=== PATIENT | female | born 1985 | race Caucasian/White ===

== ENCOUNTER → 2018-04-03 13:29 | Outpatient (CLI) | payer OTHER, SELFPAY ==
--- NOTE | 2018-04-03 13:32 | US_ITS ---
STUDY: ULTRASOUND TRANSVAGINAL CLINICAL: Female, 33 years old. Irregular menses. TECHNIQUE: Transabdominal and Transvaginal COMPARISON: None. FINDINGS: Normal uterine size measuring 7.3 cm in maximal craniocaudal dimension. There are no myometrial masses. Normal endometrial thickness measuring 2.8 mm. There are no endometrial masses, and there is no fluid in the endometrial cavity. Normal uterine cervix. Normal right ovary, measuring 3.2 x 2.2 x 2.1 cm. There are multiple follicles without a dominant cyst. Spectral analysis and Doppler flow is within normal limits. Normal left ovary, measuring 2.7 x 2.1 x 1.3 cm. There are multiple follicles without a dominant cyst. Doppler flow and spectral analysis are within normal limits. There is no free fluid in the pelvis. Polycystic ovary disease: No. US/Pelvic (Non ) IMPRESSION: Within normal limits examination. Electronically Signed: Cira Leung MD at 17:03 EDT Tel , Service support ,
--- NOTE | 2018-04-03 13:50 | US_ITS ---
STUDY: ULTRASOUND TRANSVAGINAL CLINICAL: Female, 33 years old. Irregular menses. TECHNIQUE: Transabdominal and Transvaginal COMPARISON: None. FINDINGS: Normal uterine size measuring 7.3 cm in maximal craniocaudal dimension. There are no myometrial masses. Normal endometrial thickness measuring 2.8 mm. There are no endometrial masses, and there is no fluid in the endometrial cavity. Normal uterine cervix. Normal right ovary, measuring 3.2 x 2.2 x 2.1 cm. There are multiple follicles without a dominant cyst. Spectral analysis and Doppler flow is within normal limits. Normal left ovary, measuring 2.7 x 2.1 x 1.3 cm. There are multiple follicles without a dominant cyst. Doppler flow and spectral analysis are within normal limits. There is no free fluid in the pelvis. Polycystic ovary disease: No. US/Transvaginal Non- IMPRESSION: Within normal limits examination. Electronically Signed: Cira Leung MD at 17:03 EDT Tel , Service support ,
== END ==
PROVIDERS: Visit Provider Obstetrics & Gynecology
DX: N80.9 Endometriosis, unspecified (principal)
CPT/HCPCS: 76830; 76856; 93976

== ENCOUNTER 2018-04-16 05:52 | Day surgery (SDC) | payer OTHER, SELFPAY ==
--- NOTE | 2018-04-13 10:41 | PCM.HPOB.BLA ---
- Problem List (1) Endometriosis Status: Acute History and Physical Date of Admission: 04/16/18 Intake Vital Signs 03/31/18 Height 5 ft 8 in 03/31/18 Weight: 156 lb 03/31/18 Body Mass Index (BMI) 23.7 03/31/18 Blood Pressure 111/67 Intake Visit Reasons: Discuss endometriosis Chief Complaint: Issues with endometriosis, discuss surgery Signals Intelligence Analyst Required: No Is patient in pain?: No Allergies tobramycin Allergy (Verified 03/31/18 09:19) Rash Medications Vits [Prenatabs FA ] 1 tab PO DAILY 01/13/14 [History Confirmed 06/30/16] Cetirizine HCl [Zyrtec] 10 mg PO DAILY 01/15/14 [History Confirmed 03/31/18] Fluticasone 0.05% [Flonase Nasal [place]] 1 spray NASAL DAILY 06/15/16 [History Confirmed 03/31/18] Oxycodone HCl/Acetaminophen [Percocet 5/325] 1 - 2 tab PO Q6H PRN PRN #40 tab 07/06/16 [Rx] drospirenone-ethinyl estradiol 3 mg-0.02 mg (24) tablet 1 tab PO QDAY 03/31/18 [History Confirmed 03/31/18] ferrous sulfate 325 mg (65 mg iron) tablet 325 mg PO QDAY tab 03/31/18 [History Confirmed 03/31/18] magnesium oxide 400 mg capsule 400 mg PO QDAY cap 03/31/18 [History Confirmed 03/31/18] Is last menstrual period known: Yes Last Menstral Period: 03/03/18 Post menopausal: No Patient : No : No PFSH Medical History Endometriosis (Acute) Surgical History delivery delivered (Acute) H/O laparoscopy (Acute) History of hip surgery (Acute) History of tonsillectomy (Acute) leg surgery (Acute) Family History Father Heart disease MVP (mitral valve prolapse) Mother Hypertension Social History Smoking Status: Never smoker alcohol intake: never substance use type: does not use caffeine: Yes what type of physical activity do you participate in: none seatbelt use: always do you feel safe at home: Yes additional social history: [place]- 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 she has also had irregular bleeding. she had some issues with acne and hot flashes. she has been on the loryna and has pain persitently even outside of the cycle. she is having more throughout the month. she did lupron before and it did help for the time she was on it. she has had two endometriosis surgeries in the past, once by dr aranda. she feels like this pain is different from her pain from her legs. Female Reproductive History Last Menstral Period: 03/03/18 Cycle Length: 21-35 Bleeding Duration: 5 Questions: Metorrhagia: No, Sexually active: Yes, Dyspareunia: Yes (introital), PCB: No Pregancy History 3 Elective abortions Hx Para 3 Spontaneous abortions Hx # Term Pregnancies Ectopic pregnancies Hx # Pregnancies Multiple births # of living children Past Pregnancies Del. Date Name GA/Weeks Outcome Route Bth Weight Gen Labor Lgth Anesthesia Del Locatn Provider FOB Unknown 2011 Tony live - full term [facility] Unknown 2013 Vandana live - full term [facility] Unknown 2016 Shantal live - full term [facility] ROS Const Constitutional: Denies poor appetite, headache(s), fever(s), increased appetite, weight gain, weight loss or fatigue Cardio Card: Denies chest pain Resp Resp: Denies dyspnea or cough GI GI: Reports as per HPI; denies vomiting, nausea, abdominal pain or constipation : Reports as per HPI; denies urinary urgency, vaginal discharge, urinary frequency, vaginal itching, vaginal odor, vaginal dryness, urinary incontinence, urinary hesitancy, difficulty urinating, painful urination or nipple discharge Skin Skin/Breast: Denies breast lump, breast pain, breast skin changes, nipple discharge or change in hair Exam Const General: cooperative, healthy appearing, comfortable, no acute distress, well developed Nutritional Appearance: average body habitus Orientation: alert HENMT Head: normal to inspection, normocephalic Neck Neck: normal visual inspection, trachea midline Thyroid: thyroid normal Resp Effort & Inspection: normal respiratory effort GI Inspection: normal to inspection, non-distended Palpation: soft, no hepatosplenomegaly General: bladder normal to palpation External Female Exam: normal external appearance, normal appearance of the urethra Urethra: normal appearance of the urethra, normal palpation, no discharge Speculum Exam - Vagina: normal appearance of the vagina, normal vaginal discharge Speculum Exam - Cervix: normal appearance of the cervix, nontender Bimanual Exam- Vagina & Uterus: bladder normal to palpation, No cervical tenderness, normal bimanual exam, uterine size normal, uterine shape normal, uterine mobility normal, uterine consistency normal, normal cervical palpation, uterus non-tender Bimanual Exam- Adnexa, other: normal adnexae, adnexae mobile, no adnexal masses, pelvic support normal Pelvic Support: normal Skin General: no rashes or lesions noted Assessment & Plan Problems 1. Endometriosis N80.9 Plan discussed options for management including iud vs lupron vs hysterectomy- patient wishes to proceed with hysterectomy. discussed surgical risks including risks of anesthesia, infection, bleeding, injury to bowel, bladder or blood vessels, and patient wishes to proceed with surgery. plan continuous ocp, normal pelvic ultrasound done Orders Orders: Pelvic (Non ) Today N80.9 Caryl Lyles MD Transvaginal Non- Today N80.9 Caryl Lyles MD Medications Discontinued: ibuprofen Discontinued Reason: Ordered/Entered in error 800 mg PO TID PRN PRN Pain Reena Weinstein i have seen the patient and provided any clinically relevant updates to the h and p
[2018-04-14 17:30] LABS: Absolute Lymphocyte Count 2.03 X10^3/ul (0.83-4.51); Basophil# 0.11 X10^3/uL; Basophil% 1.3 % (0-1); Eosinophil# 0.94 X10^3/uL; Eosinophils% 10.9 % (0-5); Hematocrit 36.2 % (37-47); Hemoglobin 12.4 g/dl (12.0-15.0); Lymphocyte # 2.03 X10^3/ul (4.0); Lymphocyte % 23.5 % (19-41); Mean Corp Hgb Conc 34.3 g/gl (32-36); Mean Corpuscular Hgb 29.7 pg (27.0-32.0); Mean Corpuscular Volume 86.8 fL (81-99); Mean Platelet Vol. 11.2 fl (6.2-12.0); Monocyte# 0.56 X10^3/uL; Monocyte% 6.5 % (0-10); Neutrophil # 4.98 X10^3/uL (2.7-7.7); Neutrophil % 57.8 % (47-70); POSITIVE DIFFERENTIAL NO; Platelet Count 252 K/mm3 (150-450); RBC Distribution Width CV 11.9 % (11.6-14.6); RBC Distribution Width SD 37.8 fl (35.1-43.9); Red Blood Count 4.17 M/mm3 (4.2-5.4); White Blood Count 8.6 K/mm3 (4.4-11.0)
[2018-04-14 17:31] LABS: POSITIVE COUNT NO; POSITIVE MORPHOLOGY NO
[2018-04-16] VITALS (17 sets, daily range): BP systolic 100–116; BP diastolic 57–67; PULSE 67–92; RESP 14–18; TEMP 36.6–37.1; O2SAT 96–100; BMI 22.9
--- NOTE | 2018-04-16 07:30 | UT_PTH ---
PATIENT: DILLON FERNANDEZ LOC: [facility] [place] U#:[id number] AGE/SX: 33/F ROOM: RE04/16/[address]: Dr. Caryl Lyles MD : [id number] BED: DIS: 04/17/2018 SPEC #: [id number] RECD: 04/16/18 12:26 STATUS: MICKY BILLIE #: [id number] FRED: 04/16/18 07:[address]: Carly Lyles DEPT: SURGICAL PATHOLOGY RECD BY: Jefry Cerrato ENTERED: 04/16/18 12:51 SP TYPE: UTERUS OTHR DR: Dr. Lisa Fabian, Tissues: Uterus, NOS Procedures: Special Stain Group II Surgery Specimen Level V Amyloid Stain (control) HEADER OPERATION: Hysterectomy, lap-assisted vaginal, salpingectomy, cysto PRE-OP DIAGNOSIS: Endometriosis TISSUE SUBMITTED: Uterus, bilateral fallopian tubes MICROSCOPIC DIAGNOSIS Uterus, hysterectomy: Cervix ? mild chronic inflammation. Endometrium ? transition endometrium. Myometrium ? focal adenomyosis and hyalinized plaques. Right and left fallopian tubes ? no significant pathologic change. AM:lyn 04/17/18 COMMENT [place] red stain with matched control supports the above diagnosis. MICROSCOPIC DESCRIPTION Slides are reviewed. GROSS DESCRIPTION Received in fixative is one container labeled with the patient's name and designated uterus. The specimen consists of a uterus with attached cervix and attached right and left fallopian tubes. The uterus with cervix measures 8 x 6.5 x 3.3 cm and weighs 61 gm. The ectocervix is unremarkable. The cervical os is oval in contour. The endocervical canal measures 3.3 cm in length and is grossly unremarkable. The triangular endometrial cavity measures 3.5 x 2.5 cm. The velvety, glistening, light jimenez endometrium measures up to 0.2 cm in thickness. The right fallopian tube measures 7.5 cm in length and 0.6 cm in average diameter. The left fallopian tube has a similar length and diameter. Both fallopian tubes have normal fimbriated ends. Filshie clips are identified in the proximal portion of fallopian tubes and are intact. The myometrium measures 1.7 cm in average thickness and is free of mass lesions. House Servant sections are submitted in eight cassettes as follows: 1 - anterior cervix, 2 - posterior cervix, 3 & 4 - anterior uterine wall, 5 & 6 - posterior uterine wall, 7 ? right fallopian tube, 8 ? left fallopian tube. / AM:lyn 04/16/18 TC:5 CPT: 40551, 61205
--- NOTE | 2018-04-16 07:36 | OP.PCM_ITS ---
Problem List (1) Endometriosis Status: Acute Report of Operation Date of Procedure: 04/16/18 Pre-Operative Diagnosis: endometriosis Post-Operative Diagnosis: same Surgery/Procedure Performed:: lavh bs cystoscopy Description of Surgical Findings:: Vesicouterine scar tissue normal ovaries bilaterally normal bladder direct marketing coordinator: Macy Holley Type of Anesthesia:: General Special Medications: None Specimen's removed: uterus tubes Drains: Jordan Estimated Blood Loss (mL): 50 cc Fluids Replaced: crystalloid Description of Procedure: Patient received preoperative antibiotics and SCDs were on preoperatively. Patient was taken back to the operating room and placed in the dorsal lithotomy position. General anesthesia was induced and patient was prepped and draped in normal sterile fashion. Uterine manipulator was placed inside the uterus and Jordan catheter placed in the bladder. The umbilicus was grasped with towel clamps and an intraumbilical incision was made after injecting with quarter percent Marcaine and a Veress needle entered into the abdomen confirmed to be intra-abdominal with a low opening pressure. Abdomen was insufflated with CO2 gas and the Veress needle removed and the 5 mm trocar was placed under direct visualization without complication. Right and left lower quadrants were transilluminated and injected with quarter percent Marcaine and 5 mm ports placed under direct visualization. Pelvis was well visualized see operative findings for additional information. Bilateral fallopian tubes were identified and transected with the LigaSure device across the mesosalpinx to the level of the utero-ovarian ligament which was also transected with the LigaSure device. The broad ligament was opened up by transecting the round ligament bilaterally and skeletonizing the uterine vessels bilaterally and creating a bladder flap using the LigaSure device. Some vesicouterine scar tissue was encountered which was taken down sharply and bluntly. The uterine arteries were transected bilaterally with good visualization of the bladder and the ureters were seen to be inferior lateral to the operative area. Attention was then paid to the vaginal portion of the procedure and the cervix was grasped with Jessica clamps and circumferentially injected with dilute vasopressin. A circumferential incision was made and the vaginal mucosa was mobilized off posteriorly and the cul-de-sac entered into sharply and a longneck speculum placed. The anterior cul-de-sac was then identified and entered into sharply. The uterosacral ligaments were clamped cut and suture ligated with 0 Monocryl bilaterally followed by the cardinal ligaments which were clamped cut and suture ligated bilaterally with 0 Monocryl. The uterus serially descended and was removed without difficulty with minimal morcellation. Pelvic sidewall pedicles were checked and noted to have excellent hemostasis. The vaginal mucosa was reapproximated incorporating the posterior peritoneum. This was reapproximated using 0 Vicryl [id number] sutures. Excellent hemostasis was noted. The cystoscopy was then performed and bilateral ureteral strong spray was noted and the bladder was noted to have no abnormality or lesions seen. Jordan catheter was replaced and then attention paid to the abdominal portion of the procedure again. The pelvis and cul-de-sac was well visualized and no significant active bleeding noted. Pressure was taken down and the areas visualized and noted of excellent hemostasis. All ports were removed under direct visualization without complication and the abdomen was desufflated of air. The instruments removed from the abdomen and the vagina vaginal sweep was negative. Port sites on the abdomen were closed with 4-0 Monocryl interrupted sutures and Steri's and windows were applied. She was awoken and taken recovery in stable condition. Grafts/Implants Used: none - Complications None - Admit VTE Documentation VTE Present on Admission: No VTE Mechan Device Prophylaxis: SCD's VTE Pharm Prophylaxis ordered?: No
[2018-04-16] MEDS: Vasopressin 20 UNITS/ML Vial (08:17)
[2018-04-16] MEDS: Bupivacaine 0.25% 30 ML Vial (08:40)
[2018-04-16] MEDS: HYDROmorphone 1 MG/ML Syringe IV ×3 (11:49→21:25)
[2018-04-16] MEDS: oxyCODONE 5 MG Tablet PO ×3 (13:14→22:36)
[2018-04-16] MEDS: Ketorolac 30 MG/ML Syringe IV ×2 (13:15→20:02)
[2018-04-16] MEDS: Lactated Ringers 1,000 ML 125 ML IV ×2 (13:18→21:26)
[2018-04-16] MEDS: Acetaminophen 500 MG Tablet 1000 MG PO ×2 (13:19→21:27)
[2018-04-16] MEDS: Enoxaparin 40 MG/0.4 ML Syringe SC (20:02)
[2018-04-16] MEDS: 0.9% NaCl Peripheral Flush Adult/Peds IV ×2 (20:02→21:26)
[2018-04-17 01:19] VITALS: BP 103/65; PULSE 72; RESP 14; TEMP 36.9; O2SAT 100
[2018-04-17] MEDS: 0.9% NaCl Peripheral Flush Adult/Peds IV (01:20)
[2018-04-17] MEDS: HYDROmorphone 1 MG/ML Syringe IV ×3 (01:20→09:32)
--- NOTE | 2018-04-17 01:30 | NURSING ---
0115 Pt called out c/o of saturated pad. Pad and green chux and fitted sheet with saturation. Up to BR, blood in toilet, large clots noted. VS WNL, no c/o of dizziness/lightheadedness. Call to MD, call for AM labs now, hold toradol. Have ART PROFESSOR cart in room, and MD will visit.
[2018-04-17 02:00] LABS: Hematocrit 27.7 % (37-47); Hemoglobin 9.5 g/dl (12.0-15.0); Mean Corp Hgb Conc 34.3 g/gl (32-36); Mean Corpuscular Hgb 30.4 pg (27.0-32.0); Mean Corpuscular Volume 88.5 fL (81-99); Mean Platelet Vol. 11.1 fl (6.2-12.0); Platelet Count 196 K/mm3 (150-450); RBC Distribution Width CV 11.6 % (11.6-14.6); RBC Distribution Width SD 36.8 fl (35.1-43.9); Red Blood Count 3.13 M/mm3 (4.2-5.4); White Blood Count 6.8 K/mm3 (4.4-11.0)
[2018-04-17 02:01] LABS: Scan Indicated on CBC? Y/N NO
[2018-04-17] MEDS: Estrogens,Conj. 1 Tube 1 DOSE VAGINAL (02:15)
--- NOTE | 2018-04-17 02:28 | NURSING ---
MD at bedside for vaginal exam, clot extraction, and cauterization. 1mg Dilaudid given IV per verbal order with MD at bedside. Patient tolerated procedure well.
[2018-04-17] MEDS: FERRIC SUBSULFATE 8 GM SOLN ×2 (02:30)
--- NOTE | 2018-04-17 03:00 | PCM.PN.OB ---
Subjective: came in for evaluation secondary to vaginal bleeding filled a pad in nayely last hour. no cp sob pain controlled, some difficulty with catheter emptying. - Physical Exam General: Alert, Oriented x3 Comment: Professor Of History: vagianl cuff area of bleeding, palpated intact, monsel's paste applied Vital Signs Temp Pulse Resp BP Pulse Ox 98.4 F 72 14 103/65 100 04/17/18 01:19 04/17/18 01:19 04/17/18 01:19 04/17/18 01:19 04/17/18 01:19 Oxygen Delivery Method Room Air Weight: 150 lb 12.739 oz Body Mass Index (BMI) 22.9 Intake and Output for Last 24 Hours 04/15/18 04/16/18 04/17/18 23:59 23:59 23:59 Intake Total 4131 / 4131 800 / 800 Output Total 1100 / 1100 Balance 3031 / 3031 800 / 800 Laboratory Tests Past 24 Hrs 04/17/18 01:50 WBC 6.8 RBC 3.13 L Hgb 9.5 L Hct 27.7 L MCV 88.5 MCH 30.4 MCHC 34.3 RDW 11.6 RDW Differential 36.8 Plt Count 196 MPV 11.1 Medical Necessity - Tobacco Use Smoking Status: Never smoker Tobacco Use: Non-smoker Assessment/Plan All Active Problems (Last Updated 03/31/18 @ 09:21 by Reena Weinstein) Endometriosis (Acute) s/p LAVH- postop cuff bleed- treated with monsel's paste at the bedside and packing soaked in estrogen cream applied after hemostasis was noted. hold toradol. s/p lovenox last night
[2018-04-17] MEDS: oxyCODONE 5 MG Tablet PO ×3 (03:04→11:52)
[2018-04-17] MEDS: Acetaminophen 500 MG Tablet 1000 MG PO ×2 (06:36→13:25)
[2018-04-17 06:38] VITALS: BP 95/53; PULSE 79; RESP 14; TEMP 36.6; O2SAT 97
[2018-04-17] MEDS: Lactated Ringers 1,000 ML 125 ML IV (06:58)
[2018-04-17 07:29] VITALS: BP 92/57; PULSE 66; RESP 16; TEMP 36.9; O2SAT 98
[2018-04-17] MEDS: Ibuprofen 600 MG Tablet PO ×2 (08:16→14:22)
[2018-04-17 08:20] LABS: Absolute Lymphocyte Count 2.13 X10^3/ul (0.83-4.51); Basophil# 0.05 X10^3/uL; Hematocrit 30.2 % (37-47); Hemoglobin 10.1 g/dl (12.0-15.0); Lymphocyte # 2.13 X10^3/ul (4.0); Lymphocyte % 42.8 % (19-41); Mean Corp Hgb Conc 33.4 g/gl (32-36); Mean Corpuscular Hgb 29.8 pg (27.0-32.0); Mean Corpuscular Volume 89.1 fL (81-99); Mean Platelet Vol. 10.6 fl (6.2-12.0); Monocyte# 0.39 X10^3/uL; Monocyte% 7.8 % (0-10); Neutrophil # 2.01 X10^3/uL (2.7-7.7); Neutrophil % 40.4 % (47-70); POSITIVE COUNT NO; POSITIVE DIFFERENTIAL NO; POSITIVE MORPHOLOGY NO; Platelet Count 206 K/mm3 (150-450); RBC Distribution Width CV 12.2 % (11.6-14.6); RBC Distribution Width SD 39.3 fl (35.1-43.9); Red Blood Count 3.39 M/mm3 (4.2-5.4)
[2018-04-17 11:53] VITALS: BP 95/61; PULSE 66; RESP 16; TEMP 36.7; O2SAT 99
--- NOTE | 2018-04-17 14:46 | PCM.PN.OB ---
Subjective: doing better no vaginal bleeding n oCP SOB N V - Physical Exam General: Alert, Oriented x3 Comment: packing removed and dry Vital Signs Temp Pulse Resp BP Pulse Ox 98.1 F 66 16 95/61 99 04/17/18 11:53 04/17/18 11:53 04/17/18 11:53 04/17/18 11:53 04/17/18 11:53 Oxygen Delivery Method Room Air Weight: 150 lb 12.739 oz Body Mass Index (BMI) 22.9 Intake and Output for Last 24 Hours 04/15/18 04/16/18 04/17/18 23:59 23:59 23:59 Intake Total 4131 / 4131 3323 / 3323 Output Total 1100 / 1100 1700 / 1700 Balance 3031 / 3031 1623 / 1623 Laboratory Tests Past 24 Hrs 04/17/18 04/17/18 01:50 08:15 WBC 6.8 5.0 RBC 3.13 L 3.39 L Hgb 9.5 L 10.1 L Hct 27.7 L 30.2 L MCV 88.5 89.1 MCH 30.4 29.8 MCHC 34.3 33.4 RDW 11.6 12.2 RDW Differential 36.8 39.3 Plt Count 196 206 MPV 11.1 10.6 Immature Gran % (Auto) 0.000 Neut % (Auto) 40.4 L Lymph % (Auto) 42.8 H Caroline % (Auto) 7.8 Eos % (Auto) 8.0 H Baso % (Auto) 1.0 Absolute Neuts (auto) 2.0 Absolute Lymphs (auto) 2.13 Total Counted Not Reportable Medical Necessity - Tobacco Use Smoking Status: Never smoker Tobacco Use: Non-smoker Assessment/Plan All Active Problems (Last Updated 03/31/18 @ 09:21 by Reena Weinstein) Endometriosis (Acute) s/p LAVH postop bleeding- resolved with monsel's and packing. stabld for dc home today
--- NOTE | 2018-04-17 14:48 | DCINST_ITS ---
Discharge Diet: No Restrictions Discharge Activity: Return to Normal Activity, May Not Drive, May Shower May resume sexual activity in: 6-8 weeks Call your doctor if your incision/area has: Continuous Slow Oozing, Sudden Increased Bleeding, Increased Pain/ Swelling, Increased Redness, Foul Smelling Discharge Call your doctor if you observe: Fever of 101 or Higher, Inability to urinate, Inability to have a bowel movement, Using more than one pad per hour Allergies/Adverse Reactions: Allergies tobramycin Allergy (Verified 03/31/18 09:19) Rash Medications to take at Discharge Fluticasone 0.05% [Flonase Nasal [place]] 1 spray NASAL DAILY 06/15/16 drospirenone-ethinyl estradiol 3 mg-0.02 mg (24) tablet 1 tab PO QDAY 03/31/18 ferrous sulfate 325 mg (65 mg iron) tablet 325 mg PO QDAY tab 03/31/18 magnesium oxide 400 mg capsule 400 mg PO QDAY cap 03/31/18 Fexofenadine HCl [Claudia Allergy] 180 mg PO DAILY 04/09/18 Naproxen [Naprosyn] 250 - 500 mg PO Q8H PRN PRN #30 tab 04/17/18 Oxycodone HCl/Acetaminophen [Percocet 5-325] 1 - 2 tablet PO Q4H PRN PRN 7 Days #28 tablet 04/17/18 The following prescriptions were given: Oxycodone HCl/Acetaminophen [Percocet 5-325] 1 - 2 tablet PO Q4H PRN PRN 7 Days #28 tablet PRN Reason: Moderate-Severe pain Naproxen [Naprosyn] 250 - 500 mg PO Q8H PRN PRN #30 tab PRN Reason: MILD PAIN Primary Care Physician: Lisa Fabian DO [Primary Care Provider] - Test Results: Test results from this visit will be discussed in further detail at your follow- up appointment, if applicable. Please Follow Up With: Caryl Lyles MD - [phone]
== END 2018-04-17 15:31 | disposition home or self-care (01) ==
LOC: SDC 05:52 → AC 05:53 → MS3 04-20 07:46
PROVIDERS: Visit Provider Obstetrics & Gynecology
PROC: 0UT9FZZ Resection of Uterus, Via Natural or Artificial Opening With Percutaneous Endoscopic Assistance (ICD-10-PCS; CPT 58552; principal; 2018-04-16 07:05)
DX: N80.0 Endometriosis of uterus (principal); N92.6 Irregular menstruation, unspecified; N99.820 Postprocedural hemorrhage of a genitourinary system organ or structure following a genitourinary system procedure; J45.909 Unspecified asthma, uncomplicated; D64.9 Anemia, unspecified; Z79.899 Other long term (current) drug therapy
CPT/HCPCS: 00840; 58552; 36415; 85025; 85027; 86850; 86900; 88307; 88313; J7120; A4216; J2405